=== PATIENT | male | born 2000 | race African-American/Black ===

== ENCOUNTER 2019-09-28 19:52 | Emergency (ER) | payer SELFPAY ==
[~2019-09-28] VITALS: Ht 180.3 cm; Wt 91.5 kg
--- NOTE | 2019-09-28 19:55 | PHYS DOC ---
General Adult HPI: HPI: ".. I was helping a friend move a washing machine... and it had a screw.. on the back..a sheet metal screw.. and it caught my Rt. palm.. and tore a chunk out of it... I cleaned it right away... and re cleaned with peroxide... but I probably need a tetanus shot.. and I would like to get sutures in it..." Patient is a 19 year old male who presents with above hx and complaints two centimeter avulsion laceration to mid palm right hand. The laceration is 1 cm x 2 cm. Patient did appear to be missing approximately 1 cm of skin which he states came off during the injury. Distal neurovascular intact. Patient reports to use both hands equally. Patient does not remember his last tetanus vaccination. 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 No recent travel outside the [place] area. No specific ill contacts. No history of immunosuppression. Patient is normally healthy. Review of Systems: Review of Systems: Constitutional: Denies fever or chills Eyes: Denies change in visual acuity HENT: Denies nasal congestion or sore throat Respiratory: Denies cough or shortness of breath Cardiovascular: Denies chest pain or edema GI: Denies abdominal pain, nausea, vomiting, bloody stools or diarrhea : Denies dysuria Musculoskeletal: Denies back pain or joint pain Integument: Denies rash . Complains of laceration to palm of right hand. Neurologic: Denies headache, focal weakness or sensory changes Endocrine: Denies polyuria or polydipsia Lymphatic: Denies swollen glands Psychiatric: Denies depression or anxiety Heart Score: Risk Factors: Risk Factors: DM, Current or recent (<one month) smoker, HTN, HLP, family history of CAD, obesity. Risk Scores: Score 0 - 3: 2.5% MACE over next 6 weeks - Discharge Home Score 4 - 6: 20.3% MACE over next 6 weeks - Admit for Clinical Observation Score 7 - 10: 72.7% MACE over next 6 weeks - Early Invasive Strategies Family History: Family History: Noncontributory to presentation Current Medications: Current Meds: See nursing for home meds Allergies: Allergies: No known drug allergies Physical Exam: PE: Constitutional: Well developed, well nourished, mild distress, non-toxic appearance. [] HENT: Normocephalic, atraumatic, bilateral external ears normal, oropharynx moist, no oral exudates, nose normal. [] Eyes: PERRLA, EOMI, conjunctiva normal, no discharge. [] Neck: Normal range of motion, no tenderness, supple, no stridor. [] Cardiovascular:Heart rate regular rhythm, no murmur [] Lungs & Thorax: Bilateral breath sounds clear to auscultation [] Abdomen: Bowel sounds normal, soft, no tenderness, no masses, no pulsatile masses. [] Skin: Warm, dry, no erythema, no rash. [. Some superficial scratches right forearm and laceration palm of right hand-1 cm x 2 cm Back: No tenderness, no CVA tenderness. [] Extremities: No tenderness, no cyanosis, no clubbing, ROM intact, no edema. [] Neurologic: Alert and oriented X 3, normal motor function, normal sensory function, no focal deficits noted. [] Psychologic: Affect normal, judgement normal, mood normal. [] EKG: EKG: [] Radiology/Procedures: Radiology/Procedures: [] Course & Med Decision Making: Course & Med Decision Making Pertinent Labs and Imaging studies reviewed. (See chart for details) Procedure note-laceration 1 x 2 cm was irrigated with normal saline. Betadine applied to the edge wound. Injected edge of 1 of 2% lidocaine. Reirrigated hand and range of motion. Close laceration with 3 simple sutures of 4-0 Vicryl. Dressing applied. Patient keep laceration clean and dry. Sutures will not need to be removed since it will dissolve. Patient to remove dressing immediately if becomes soiled or wet. Apply Polysporin 4 times a day to wound after this dressing removed. Keep laceration covered while working. Monitor closely for infection. Return if any concerns. Impression: 1. Laceration right palm 1 x 2 cm ( Missing 1 cm of skin tissue) [] Dragon Disclaimer: Dragon Disclaimer: This electronic medical record was generated, in whole or in part, using a voice recognition dictation system. Departure Departure: Disposition: 01 HOME/RESIDENCE PRIOR TO ADM Condition: STABLE Dragon Disclaimer This chart was dictated in whole or in part using Voice Recognition software in a busy, high-work load, and often noisy Emergency Department environment. It may contain unintended and wholly unrecognized errors or omissions. LIBRADO AZUL MD September 28, 2019 19:55
[2019-09-28 20:04] VITALS: BP 147/78
[2019-09-28] MEDS ORDERED: DIPH,PERTUSS(ACELL),TET VAC/PF 0.5 ML SYRINGE. VAX IM ONE ×2 (20:09→20:15)
[2019-09-28] MEDS ORDERED: LIDOCAINE 2% 20 ML VIAL. ONE (20:11)
[2019-09-28] MEDS ORDERED: BACITRACIN ZINC TOPICAL OINT PACKET. TP ONE ×2 (20:11→20:15)
[2019-09-28] MEDS ORDERED: LIDOCAINE 2% 20 ML VIAL. IJ ONE (20:15)
== END 2019-09-28 20:30 | disposition home or self-care (01) ==
LOC: ER 19:52
DX: S61.411A Laceration without foreign body of right hand, initial encounter (principal); W26.1XXA Contact with sword or dagger, initial encounter; Y93.89 Activity, other specified; Y92.89 Other specified places as the place of occurrence of the external cause; Y99.8 Other external cause status
CPT/HCPCS: 12001; 90471; 90715; 99283-25; J2001